=== PATIENT | female | born 1975 | race Caucasian/White ===

== ENCOUNTER 2019-09-26 08:11 | Emergency (ER) | payer MEDICAID ==
[~2019-09-26] VITALS: Ht 157.5 cm; Wt 75.7 kg
[2019-09-26 08:29] VITALS: BP 119/70; Ht 157.5 cm; Wt 75.7 kg
== END 2019-09-26 09:45 | disposition home or self-care (01) ==
LOC: ED 08:11
DX: M54.5 Low back pain (principal); Z86.2 Personal history of diseases of the blood and blood-forming organs and certain disorders involving the immune mechanism
CPT/HCPCS: J1885